=== PATIENT | female | born 1960 | race Caucasian/White ===

== ENCOUNTER 2018-11-14 07:59 | Outpatient (CLI) | payer BC | END 2018-11-14 20:43 | disposition home or self-care (01) | LOC: SMA 07:59 | PROVIDERS: ATTEND Family Medicine | DX: Z12.31 Encounter for screening mammogram for malignant neoplasm of breast (principal) | CPT/HCPCS: 77067 ==

== ENCOUNTER 2020-10-22 08:46 | Outpatient (CLI) | payer BC | END 2020-10-22 20:27 | disposition home or self-care (01) | LOC: SMA 08:46 | PROVIDERS: ATTEND General Practice | DX: Z12.31 Encounter for screening mammogram for malignant neoplasm of breast (principal) | CPT/HCPCS: 77067 ==

== ENCOUNTER 2021-12-23 11:38 | Outpatient (CLI) | payer BC | END 2021-12-23 20:17 | disposition home or self-care (01) | LOC: SMA 11:38 | PROVIDERS: ATTEND Family Medicine | DX: Z12.31 Encounter for screening mammogram for malignant neoplasm of breast (principal) | CPT/HCPCS: 77067 ==

== ENCOUNTER 2023-05-25 11:22 | Outpatient (CLI) | payer BC | END 2023-05-25 19:52 | disposition home or self-care (01) | LOC: SMA 11:22 | PROVIDERS: ATTEND Physician Assistant Medical | DX: Z12.31 Encounter for screening mammogram for malignant neoplasm of breast (principal) | CPT/HCPCS: 77067 ==